=== PATIENT | male | born 1950 | race Caucasian/White ===

== ENCOUNTER 2016-11-14 12:22 | Inpatient (IN) | payer OTHER ==
[~2016-11-14] VITALS: Ht 175.3 cm; Wt 103.6 kg
[~2016-11-14 12:22] MED LIST: ASPIR 8181 M1 PO; CYCLOBENZAPRINE10 MG PO; DUONEB 2.5-0.5 M3 ML AEROSOL; GABAPENTIN300 MG PO; LEVAQUIN750 MG PO; LISINOPRIL10 MG PO; MELOXICAM15 MG PO; PRAVASTATIN SOD40 MG PO; RANITIDINE HCL150 MG PO; TAMSULOSIN HCL0.4 MG PO; VICODIN 5-3001 EACH PO
[2016-11-14 12:48] LABS: POINT-OF-CARE METER ID UU14100415
[2016-11-14 13:36] LABS: EOSINOPHIL (%) 0.2 % (0-5); IMMATURE GRANULOCYTE (%) 0.6 % (0.0-0.7); IMMATURE GRANULOCYTE COUNT 0.1 K/uL; LYMPHOCYTE COUNT 3.3 K/uL (1.0-2.8); MCHC 33.4 G/DL (30.0-36.0); MCV 104.7 FL (86-99); MONOCYTE COUNT 1.3 K/uL (0-0.8); NEUTROPHIL (%) 63.2 % (45-76); PLATELET COUNT 97 K/uL (156-360); RBC DIS.WIDTH-CV 14.7 % (11.8-14.6); RBC DIS.WIDTH-SD 57.7 % (39-53); RED BLOOD COUNT 3.63 M/uL (4.00-5.50); WHITE BLOOD COUNT 12.7 K/uL (4.1-10.2)
[2016-11-14 13:58] LABS: TROP-I INTERPRETATION NEGATIVE; TROPONIN-I 0.01 ng/mL (0.0-0.30)
[2016-11-14 14:18] LABS: INTER. NORMALIZED RATIO 1.4; PROTHROMBIN TIME 14.1 (9.2-11.2); PTT 29.6 (25-32)
[2016-11-14 14:22] LABS: CHLORIDE 115 mEq/L (99-109); POTASSIUM 5.1 mEq/L (3.7-5.4); SODIUM 144 mEq/L (136-147)
[2016-11-14 14:24] LABS: GLUCOSE 137 mg/dL (70-99)
[2016-11-14 14:26] LABS: ANION GAP 11 MEQ/L (2-14); TOTAL BILIRUBIN 2.1 mg/dL (0.0-1.0)
[2016-11-14 14:28] LABS: ALKALINE PHOSPHATASE 81 IU/L (3-129); GFR ESTIMATE (CALCULATED) > 59 mL/min/
[2016-11-14 14:29] LABS: UREA NITROGEN (BUN) 34 mg/dL (9-23)
[2016-11-14 14:31] LABS: CREATINE KINASE 199 IU/L (1-294); TOTAL CK 199 IU/L (1-294)
[2016-11-14 14:33] LABS: CK-MB 1.7 ng/mL (0.0-4.9)
[2016-11-14] MEDS ORDERED: NORCO 5/3251 TABLET PO ×2 (16:16)
[2016-11-14] MEDS ORDERED: FLEXERIL10 MG PO (16:17)
[2016-11-14] MEDS ORDERED: MELOXICAM15 MG PO (16:17)
[2016-11-14] MEDS ORDERED: CALCIUM 500 MG1 EACH PO (16:17)
[2016-11-14 16:43] LABS: ADD MIUA? NO; BILIRUBIN NEGATIVE; BLOOD NEGATIVE; COLOR YELLOW ((YELLOW)); GLUCOSE (STRIP) NEGATIVE; KETONES 5; LEUKOCYTES NEGATIVE; NITRITE NEGATIVE; PROTEIN (STRIP) NEGATIVE; SPECIFIC GRAVITY 1.019 (1.000-1.030); UCUL ADDED? NO
[2016-11-14 20:54] VITALS: BP 137/63
[2016-11-14 21:04] LABS: POINT-OF-CARE METER ID UU14100415
[2016-11-15 00:06] VITALS: BP 125/72
[2016-11-15 04:26] VITALS: BP 113/56
[2016-11-15 07:00] LABS: HEMATOCRIT 29.2 % (38.0-50.0); MCH 35.7 PG (29.0-34.0); MCHC 33.9 G/DL (30.0-36.0); MCV 105.4 FL (86-99); MEAN PLAT.VOLUME 11.5 uM^3 (9.0-12.4); PLATELET COUNT 89 K/uL (156-360); RBC DIS.WIDTH-CV 15.2 % (11.8-14.6); RBC DIS.WIDTH-SD 58.5 % (39-53); WHITE BLOOD COUNT 13.6 K/uL (4.1-10.2)
[2016-11-15 07:02] LABS: RED BLOOD COUNT 2.77 M/uL (4.00-5.50)
[2016-11-15 07:23] LABS: ALKALINE PHOSPHATASE 75 IU/L (3-129); ANION GAP 10 MEQ/L (2-14); CHLORIDE 115 MEQ/L (99-109); GFR ESTIMATE (CALCULATED) > 59 mL/min/; GLUCOSE 141 mg/dL (70-99); POTASSIUM 4.5 MEQ/L (3.7-5.4); SAMPLE HEMOLYSIS CHECK 0; SAMPLE ICTERIC CHECK 0; SAMPLE LIPEMIA CHECK 0; SODIUM 146 MEQ/L (136-147); TOTAL BILIRUBIN 1.9 MG/DL (0.0-1.0); UREA NITROGEN (BUN) 48 mg/dL (9-23)
[2016-11-15 08:45] VITALS: BP 137/63
[2016-11-15 11:59] LABS: BASE EXCESS -3.7 mEq/L (-3 to +3); BICARBONATE 19.2 mEq/L (22-26); CARBOXY HGB 2.4 % (0-5); METHEMOGLOBIN 1.3 % (0-1.5); PCO2 27 mm Hg (35-45); PO2 73 mm Hg (80-100); pH 7.46 (7.35-7.45)
[2016-11-15 12:00] LABS: COMMENTS - BLOOD GASES A+C+; DEVICE RA; SITE LR; TOTAL RESP RATE 16 resp/min
[2016-11-15 12:09] LABS: AMPHETAMINES QUANT VALUE 0 NG/ML; BARBITUATES QUANT VALUE 0 NG/ML; BENZODIAZEPINES QUANT VALUE 0 NG/ML; BENZODIAZEPINES, URINE SCREEN Negative (200 ng/mL); MARIJUANA QUANT VALUE 0 NG/ML; PHENCYCLIDINE QUANT VALUE 0 NG/ML
[2016-11-15 12:17] VITALS: BP 138/60
[2016-11-15 15:31] LABS: HEMATOCRIT 29.2 % (38.0-50.0); MCV 103.9 FL (86-99)
[2016-11-15 15:45] VITALS: BP 184/81
[2016-11-15 19:30] LABS: INTERNAL CONTROL VALID? YES
[2016-11-15 19:31] LABS: INTERNAL CONTROL VALID? ND
[2016-11-15 19:37] VITALS: BP 145/70
[2016-11-15 21:24] LABS: GASTRIC OCCULT BLD. POSITIVE; INTERNAL CONTROL VALID? YES
[2016-11-16] VITALS (15 sets, daily range): BP systolic 86–902; BP diastolic 52–72
[2016-11-16 00:44] LABS: HEMATOCRIT 28.6 % (38.0-50.0); MCV 103.6 FL (86-99)
[2016-11-16 05:45] LABS: EOSINOPHIL (%) 0.1 % (0-5); HEMATOCRIT 28.4 % (38.0-50.0); IMMATURE GRANULOCYTE (%) 1.1 % (0.0-0.7); IMMATURE GRANULOCYTE COUNT 0.2 K/uL; INSTRUMENT ABS NEUTROPHIL CT 12.4 K/uL; LYMPHOCYTE COUNT 2.1 K/uL (1.0-2.8); MCH 36.1 PG (29.0-34.0); MCHC 34.2 G/DL (30.0-36.0); MCV 105.6 FL (86-99); MEAN PLAT.VOLUME 11.3 uM^3 (9.0-12.4); MONOCYTE (%) 7.8 % (3-12); MONOCYTE COUNT 1.2 K/uL (0-0.8); NEUTROPHIL (%) 77.9 % (45-76); NEUTROPHIL COUNT 12.4 K/uL (1.8-6.4); NRBC (%) 0.1 /100 WBC (0-0); PLATELET COUNT 114 K/uL (156-360); RBC DIS.WIDTH-CV 15.9 % (11.8-14.6); RBC DIS.WIDTH-SD 60.5 % (39-53); RED BLOOD COUNT 2.69 M/uL (4.00-5.50); WHITE BLOOD COUNT 15.9 K/uL (4.1-10.2)
[2016-11-16 06:13] LABS: ANION GAP 12 MEQ/L (2-14); CHLORIDE 116 MEQ/L (99-109); GFR ESTIMATE (CALCULATED) 59 mL/min/; GLUCOSE 154 mg/dL (70-99); POTASSIUM 4.3 MEQ/L (3.7-5.4); SAMPLE HEMOLYSIS CHECK 0; SAMPLE ICTERIC CHECK 0; SAMPLE LIPEMIA CHECK 0; SODIUM 148 MEQ/L (136-147); UREA NITROGEN (BUN) 64 mg/dL (9-23)
[2016-11-16 11:46] LABS: HEMATOCRIT 30.2 % (38.0-50.0); MCV 107.1 FL (86-99)
[2016-11-16 16:32] LABS: BASE EXCESS -1.1 mEq/L (-3 to +3); BICARBONATE 20.5 mEq/L (22-26); CARBOXY HGB 3.4 % (0-5); COMMENTS - BLOOD GASES A+C+; DEVICE RA; METHEMOGLOBIN 0.9 % (0-1.5); PCO2 24 mm Hg (35-45); PO2 56 mm Hg (80-100); SITE LR; pH 7.54 (7.35-7.45)
[2016-11-16 17:04] LABS: HEMATOCRIT 29.7 % (38.0-50.0); MCH 35.4 PG (29.0-34.0); MCV 107.2 FL (86-99); MEAN PLAT.VOLUME 11.2 uM^3 (9.0-12.4); NRBC (%) 0.4 /100 WBC (0-0); PLATELET COUNT 111 K/uL (156-360); RBC DIS.WIDTH-CV 16.2 % (11.8-14.6); RBC DIS.WIDTH-SD 62.4 % (39-53); RED BLOOD COUNT 2.77 M/uL (4.00-5.50); WHITE BLOOD COUNT 15.8 K/uL (4.1-10.2)
[2016-11-16 17:12] LABS: INTER. NORMALIZED RATIO 1.3; PROTHROMBIN TIME 13.8 (9.2-11.2)
[2016-11-16 17:24] LABS: ANION GAP 10 MEQ/L (2-14); CHLORIDE 117 MEQ/L (99-109); POTASSIUM 4.3 MEQ/L (3.7-5.4); SAMPLE HEMOLYSIS CHECK 0; SAMPLE ICTERIC CHECK 0; SAMPLE LIPEMIA CHECK 0; SODIUM 147 MEQ/L (136-147)
[2016-11-16 17:30] LABS: GFR ESTIMATE (CALCULATED) 46 mL/min/; GLUCOSE 153 mg/dL (70-99); UREA NITROGEN (BUN) 73 mg/dL (9-23)
[2016-11-16 20:53] LABS: BASE EXCESS -5.5 mEq/L (-3 to +3); BICARBONATE 18.2 mEq/L (22-26); METHEMOGLOBIN 1.3 % (0-1.5); PCO2 28 mm Hg (35-45)
[2016-11-16 20:54] LABS: COMMENTS - BLOOD GASES A+C+; DEVICE NC; O2 FLOW 2 L/MIN; PO2 72 mm Hg (80-100); SITE LR; TOTAL RESP RATE 18 resp/min; pH 7.42 (7.35-7.45)
[2016-11-16 21:09] LABS: POINT-OF-CARE METER ID UU14174216
[2016-11-16 21:43] LABS: RED CELL AREA COUNTED 0.4; RED CELL COUNT 33325 /MM^3 (0-1); RED CELL DILUTION 1; WBC AREA COUNTED 18; WBC DILUTION 1; WHITE CELL COUNT 47 /MM^3 (0-5); WHITE CELL RAW COUNT 84
[2016-11-16 21:44] LABS: SALICYLATE < 3.0 MG/DL (15-30)
[2016-11-16 21:45] LABS: CSF EOSINOPHILS 0 % (0-25); MONO RAW COUNT 11; MONONUCLEAR WBC'S 11 % (50-90); POLY RAW COUNT 89; POLYNUCLEAR WBC'S 89 % (0-3)
[2016-11-16 21:46] LABS: CSF TUBE NUMBER (RECHECK) TUBE #1; RED CELL AREA COUNTED 0.4; RED CELL COUNT (RECHECK) 43425 /MM^3 (0-1); RED CELL DILUTION 1
[2016-11-16 23:56] LABS: METH RESISTANT S AUREUS PCR POSITIVE (NEGATIVE)
[2016-11-17] VITALS (34 sets, daily range): BP systolic 89–164; BP diastolic 53–88
[2016-11-17 00:02] LABS: PROBE CHECK PASS
[2016-11-17 00:05] LABS: HEMATOCRIT 26.8 % (38.0-50.0); MCH 35.6 PG (29.0-34.0); MCHC 32.8 G/DL (30.0-36.0); MCV 108.5 FL (86-99); NRBC (%) 0.7 /100 WBC (0-0); RBC DIS.WIDTH-CV 16.3 % (11.8-14.6); RBC DIS.WIDTH-SD 64.3 % (39-53); RED BLOOD COUNT 2.47 M/uL (4.00-5.50)
[2016-11-17 00:15] LABS: CHLORIDE 120 mEq/L (99-109); POTASSIUM 4.5 mEq/L (3.7-5.4); SODIUM 148 mEq/L (136-147)
[2016-11-17 00:17] LABS: GLUCOSE 155 mg/dL (70-99)
[2016-11-17 00:18] LABS: WHITE BLOOD COUNT 8.5 K/uL (4.1-10.2)
[2016-11-17 00:19] LABS: ANION GAP 11 MEQ/L (2-14)
[2016-11-17 00:21] LABS: ALKALINE PHOSPHATASE 96 IU/L (3-129); GFR ESTIMATE (CALCULATED) 46 mL/min/
[2016-11-17 00:22] LABS: UREA NITROGEN (BUN) 76 mg/dL (9-23)
[2016-11-17 00:26] LABS: TOTAL BILIRUBIN 2.7 mg/dL (0.0-1.0)
[2016-11-17 01:27] LABS: ABS NEUTROPHIL COUNT 6.5; ANISOCYTOSIS 1+; ATYPICAL LYMPHOCYTE 0.9 %; BAND NEUTROPHILS 19.1 % (0-8.0); EOSINOPHIL ABS CT 0; HYPOCHROMASIA 2+; INSTRUMENT ABS NEUTROPHIL CT 5.7 K/uL; MACROCYTES 1+; MYELOCYTES 0.9 %; NUCLEATED RBC'S 1.7; PLAT.SUFFICIENCY DECREASED; PLATELET COUNT 81 K/uL (156-360); POLYCHROMASIA 1+; SEG.NEUTROPHILS 57.4 % (46.0-76.0)
[2016-11-17 10:34] LABS: ALKALINE PHOSPHATASE 51 IU/L (3-129); ANION GAP 9 MEQ/L (2-14); CHLORIDE 117 MEQ/L (99-109); GFR ESTIMATE (CALCULATED) 59 mL/min/; GLUCOSE 163 mg/dL (70-99); MAGNESIUM 1.8 mg/dl (1.3-2.7); SAMPLE HEMOLYSIS CHECK 0; SAMPLE ICTERIC CHECK 1; SAMPLE LIPEMIA CHECK 0; SODIUM 147 MEQ/L (136-147); UREA NITROGEN (BUN) 61 mg/dL (9-23)
[2016-11-17 10:36] LABS: TOTAL BILIRUBIN 2.9 MG/DL (0.0-1.0)
[2016-11-17 10:46] LABS: UR CREATININE CONCENTRATION 100.8 MG/DL
[2016-11-17 11:22] LABS: HEMATOCRIT 17.7 % (38.0-50.0); INTER. NORMALIZED RATIO 1.8; MCH 35.6 PG (29.0-34.0); MCHC 32.2 G/DL (30.0-36.0); MCV 110.6 FL (86-99); NRBC (%) 0.5 /100 WBC (0-0); PROTHROMBIN TIME 18.7 (9.2-11.2); RBC DIS.WIDTH-CV 16.1 % (11.8-14.6); RBC DIS.WIDTH-SD 63.6 % (39-53); WHITE BLOOD COUNT 7.3 K/uL (4.1-10.2)
[2016-11-17 11:50] LABS: PTT 43.3 (25-32)
[2016-11-17 12:28] LABS: ABS NEUTROPHIL COUNT 5.5; ANISOCYTOSIS 1+; BAND NEUTROPHILS 33.6 % (0-8.0); EOSINOPHIL ABS CT 0; INSTRUMENT ABS NEUTROPHIL CT 5.2 K/uL; LYMPHOCYTES 18.1 % (15.0-45.0); MACROCYTES 1+; MEAN PLAT.VOLUME 11.1 uM^3 (9.0-12.4); MICROCYTOSIS 1+; PLAT.SUFFICIENCY DECREASED; POLYCHROMASIA 1+; SEG.NEUTROPHILS 41.4 % (46.0-76.0)
[2016-11-17 12:48] LABS: BASE EXCESS -6.8 mEq/L (-3 to +3); BICARBONATE 18.5 mEq/L (22-26); CARBOXY HGB 0.5 % (0-5); COMMENTS - BLOOD GASES +C; DEVICE PB980; FI02 100 %; METHEMOGLOBIN 0.7 % (0-1.5); PCO2 35 mm Hg (35-45); PO2 387 mm Hg (80-100); SITE LR +A; pH 7.33 (7.35-7.45)
[2016-11-17 12:49] LABS: MECHANICAL RATE 14 resp/min; MODE AC; PEEP 6 CM/H20; TIDAL VOLUME 500 ML; TOTAL RESP RATE 30 resp/min
[2016-11-17 13:04] LABS: PLATELET COUNT 54 K/uL (156-360)
[2016-11-17 16:12] LABS: HEMATOCRIT 26.6 % (38.0-50.0); MCHC 33.5 G/DL (30.0-36.0); RBC DIS.WIDTH-CV 19.1 % (11.8-14.6); RBC DIS.WIDTH-SD 64.8 % (39-53); WHITE BLOOD COUNT 5.7 K/uL (4.1-10.2)
[2016-11-17 16:40] LABS: D-DIMER LATEX POSITIVE
[2016-11-17 16:59] LABS: MCV 95.7 FL (86-99); RED BLOOD COUNT 2.78 M/uL (4.00-5.50)
[2016-11-17 18:11] LABS: IMM.PLATELET FRACTION 0.2 (1-7)
[2016-11-17 18:12] LABS: MEAN PLAT.VOLUME 13.3 uM^3 (9.0-12.4); PLAT.SUFFICIENCY VERY DECREASED; PLATELET COUNT 6 K/uL (156-360)
[2016-11-17 18:19] LABS: SCHISTOCYTES NONE SEEN
[2016-11-17 19:06] LABS: IRON 15 MCG/DL (35-150)
[2016-11-17 19:53] LABS: FERRITIN 115 NG/ML (22-322)
[2016-11-18 10:21] LABS: HBSG INDEX 0.25
[2016-11-18 10:23] LABS: AHBS INDEX 0.35; ANTI-HEPATITIS A VIRUS (IGM) Nonreactive; HAV INDEX 0.32; HEPATITIS B SURFACE ANTIBODY Nonreactive
[2016-11-18 10:24] LABS: ANTI-HEPATITIS B CORE (IGM) Nonreactive; HBC IgM INDEX 0.08
[2016-11-18 10:33] LABS: HIV INDEX 0.09; HIV-1/2 AB/AG COMBO Nonreactive
[2016-11-18 10:42] LABS: ANTI-HEPATITIS A VIRUS (IGM) Nonreactive; HAV INDEX 0.23
[2016-11-18 10:43] LABS: ANTI-HEPATITIS B CORE (IGM) Nonreactive; HBC IgM INDEX 0.07
[2016-11-18 11:04] LABS: HPCA INDEX 13.39
[2016-11-19 13:08] LABS: HCV RNA (IU/mL) 5143463 IU/mL (<15)
[2016-11-19 14:31] LABS: HCV RNA (LOG IU/mL) 6.71 (<1.18)
[2016-11-19 23:37] LABS: ANTI-SMOOTH MUSCLE (Actin)+ <20 U (<20)
[2016-11-20 01:31] LABS: ALPHA-1-ANTITRYPSIN+ 93 mg/dL (83-199)
[2016-11-20 18:30] LABS: MITOCHONDRIAL (M2) ANTIBODIES+ <=20.0 U (<=20.0)
== END 2016-11-18 02:22 | DRG 981 ==
LOC: EME 12:22 → EDOF 16:31 → 4WEST 16:31 → 4EAST 16:31 → 4WEST 16:31 → 4EAST 20:39 → 4WEST 11-16 21:00 → 4EAST 11-16 21:02 → 4WEST 11-16 21:10
PROVIDERS: Emergency Medicine; Hospitalist; Internal Medicine; Internal Medicine Gastroenterology; Internal Medicine Pulmonary Disease; Physician Assistant; Psychiatry & Neurology Neurology; Student in an Organized Health Care Education/Training Program
PROC: 009U3ZX Drainage of Spinal Canal, Percutaneous Approach, Diagnostic (ICD-10-PCS; principal; 2016-11-16)
PROC: 0DJ08ZZ Inspection of Upper Intestinal Tract, Via Natural or Artificial Opening Endoscopic (ICD-10-PCS; principal; 2016-11-16)
PROC: B01BYZZ Fluoroscopy of Spinal Cord using Other Contrast (ICD-10-PCS; principal; 2016-11-16)
PROC: 5A1935Z Respiratory Ventilation, Less than 24 Consecutive Hours (ICD-10-PCS; 2016-11-17)
PROC: 30243N1 Transfusion of Nonautologous Red Blood Cells into Central Vein, Percutaneous Approach (ICD-10-PCS; 2016-11-17)
PROC: 05HN33Z Insertion of Infusion Device into Left Internal Jugular Vein, Percutaneous Approach (ICD-10-PCS; 2016-11-17)
PROC: 0W3P7ZZ Control Bleeding in Gastrointestinal Tract, Via Natural or Artificial Opening (ICD-10-PCS; 2016-11-17)
PROC: 0BH17EZ Insertion of Endotracheal Airway into Trachea, Via Natural or Artificial Opening (ICD-10-PCS; 2016-11-17)
PROC: 30243K1 Transfusion of Nonautologous Frozen Plasma into Central Vein, Percutaneous Approach (ICD-10-PCS; 2016-11-17)
DX: I86.4 Gastric varices (principal); K92.2 Gastrointestinal hemorrhage, unspecified; K72.01 Acute and subacute hepatic failure with coma; D62 Acute posthemorrhagic anemia; D65 Disseminated intravascular coagulation [defibrination syndrome]; Z51.5 Encounter for palliative care; N17.9 Acute kidney failure, unspecified; G93.41 Metabolic encephalopathy; K65.9 Peritonitis, unspecified; I95.9 Hypotension, unspecified; E87.2 Acidosis; K74.69 Other cirrhosis of liver; R00.0 Tachycardia, unspecified; I10 Essential (primary) hypertension; G89.29 Other chronic pain; M54.9 Dorsalgia, unspecified; R45.1 Restlessness and agitation; D72.829 Elevated white blood cell count, unspecified; E78.5 Hyperlipidemia, unspecified; F17.210 Nicotine dependence, cigarettes, uncomplicated; K59.00 Constipation, unspecified; K44.9 Diaphragmatic hernia without obstruction or gangrene; N40.1 Benign prostatic hyperplasia with lower urinary tract symptoms; R33.8 Other retention of urine; E80.6 Other disorders of bilirubin metabolism; E66.9 Obesity, unspecified; Z68.34 Body mass index [BMI] 34.0-34.9, adult; K21.0 Gastro-esophageal reflux disease with esophagitis; R29.810 Facial weakness; B35.1 Tinea unguium; I87.8 Other specified disorders of veins; I25.10 Atherosclerotic heart disease of native coronary artery without angina pectoris; J44.9 Chronic obstructive pulmonary disease, unspecified
CPT/HCPCS: 36600; 62270; 70450; 70551; 71010; 71275; 74000; 74176; 76705; 77003; 80048; 80048 91; 80053; 80074; 80202; 80306 90; 81003; 82103 90; 82140; 82271; 82272; 82390; 82550; 82550 91; 82553; 82570; 82607; 82728; 82803; 82945; 82948; 83516 90; 83540; 83605; 83735; 83930; 83935; 84100; 84133; 84157; 84300; 84466; 84484; 85014; 85018; 85025; 85025 91; 85027; 85378; 85384; 85610; 85730; 86038; 86256 90; 86703; 86705; 86706; 86709; 86803; 86900; 86901; 86920; 86965; 87040; 87070; 87077; 87147; 87205; 87340; 87522 90; 87641; 87801; 89051; 93005; 94002; 99281; 99285; B4082; C9113; G0480; J0133; J0290; J0696; J1630; J1644; J1650; J1815; J2060; J2250; J2270; J2310; J2354; J2704; J2765; J3010; J3370; J7030; J7040; J7050; J7120; P9016; P9017; P9047